=== PATIENT | male | born 1965 | race Caucasian/White ===

== ENCOUNTER → 2021-06-02 | Outpatient (CLI) | payer OTHER ==
--- NOTE | 2021-06-02 15:15 | DIREP ---
PROCEDURE:US DUPLEX EXTREM VEINS UNILATER/LIMITED-LT COMPARISON:None. INDICATIONS:R22.42 SWELLING LUMP LEFT LOWER LIMB, SWELLING SINCE MARCH 2021 TECHNIQUE:The left lower extremity was evaluated utilizing mak scale images with segmental compression, color Doppler, and spectral Doppler with respiratory variation and augmentation. FINDINGS: Common femoral vein:Patent Profunda femoris vein: Patent Superficial femoral vein:Patent Popliteal vein:Patent Posterior tibial vein:Patent Peroneal vein: Patent Greater saphenous vein:Patent Waveforms: Within normal limits. CONCLUSION:No evidence of deep venous thrombosis of the left lower extremity. Dictated by: NETTIEA Physician on 06/02/2021 at 03:04 PM ac
== END | disposition home or self-care (01) ==
LOC: RAD 14:03
PROVIDERS: ATTEND Family Medicine
DX: R22.42 Localized swelling, mass and lump, left lower limb (principal)
CPT/HCPCS: 93971

== ENCOUNTER → 2021-07-02 | Outpatient (CLI) | payer OTHER ==
--- NOTE | 2021-07-02 18:55 | DIREP ---
PROCEDURE:US DUPLEX LOWER EXTREMITY ARTERY UNIL/LIMITED-LT COMPARISON:None. INDICATIONS:LLE PAIN, DM, LLE SX 04/03 TECHNIQUE:A comprehensive color duplex Doppler ultrasound examination of the left lower extremity was performed. Color image and bidirectional spectral Doppler wave form analysis, and peak systolic flow measurements of the common femoral, profunda femoral, superficial femoral, and popliteal arteries were performed. Ankle/brachial indices were measured at the distal posterior tibial artery and anterior tibial/dorsalis pedis. FINDINGS: LEFT LOWER EXTREMITY: PT ANDREA: 1.26. AT/DP ANDREA: 1.30. COMMON FEMORAL:162 cm/sTriphasic PROFUNDA FEMORIS:144 cm/sTriphasic SUPERFICIAL FEMORAL (prox):146 cm/sTriphasic SUPERFICIAL FEMORAL (mid):122 cm/sTriphasic SUPERFICIAL FEMORAL (dist):140 cm/sTriphasic POPLITEAL (prox):106 cm/sTriphasic POPLITEAL (dist):104 cm/sTriphasic POSTERIOR TIBIAL (prox):98 cm/sTriphasic POSTERIOR TIBIAL (mid):81 cm/sTriphasic POSTERIOR TIBIAL (dist):77 cm/sTriphasic PERONEAL (prox):66 cm/sTriphasic ANTERIOR TIBIAL (prox):122 cm/sTriphasic ANTERIOR TIBIAL (mid):74 cm/sTriphasic ANTERIOR TIBIAL (dist):80 cm/sTriphasic DORSALIS PEDIS:83 cm/sTriphasic RIGHT LOWER EXTREMITY: PT ANDREA: 1.31. AT/DP ANDREA: 1.35. CONCLUSION: No significant obstructive disease by ANDREA. No increased velocity or waveform change to suggest hemodynamically significant stenosis sonographically. ABIs greater than 1.4 indicate noncompressible vessels, likely to have significant peripheral vascular disease (PVD). ABIs of 0.91 to 1.3 indicate no significant obstructive disease. ABIs of 0.41 to 0.90 indicate grade I claudication. ABIs less than 0.4 indicate limb-threatening ischemia of grade I or grade II. % stenosisPSV (cm/s)Velocity ratio0-19<150<[id number]>75>300>4 Dictated by: Anyi Champagne MD on 07/02/2021 at 06:49 PM
== END | disposition home or self-care (01) ==
LOC: RAD 14:40
PROVIDERS: ATTEND Family Medicine
DX: R22.42 Localized swelling, mass and lump, left lower limb (principal)
CPT/HCPCS: 93922; 93926

== ENCOUNTER → 2021-08-02 | Outpatient (CLI) | payer OTHER ==
--- NOTE | 2021-08-02 09:49 | DIREP ---
PROCEDURE:CT LOWER EXTREMITY-LT W/O COMPARISON:None. INDICATIONS:M25.562 ACUTE PAIN OF LEFT KNEE TECHNIQUE:Axial sections through the left knee were performed with sagittal and coronal reconstructions from source images. No contrast was administered. 3D reconstructions were also performed. FINDINGS: BONES:Metallic plate and screw fixation of a comminuted intra-articular fracture involving the tibial plateau common metaphysis, in extension to the proximal shaft. Hardware is well seated and intact. No evidence of surrounding lucency to suggest loosening or infection. Fracture lines at the medial tibial plateau remain lucent and demonstrate adjacent sclerosis consistent with nonunion. In addition there is a generalized region of lucency at the medial aspect of the tibial metaphysis. There is proximally 5 mm of step-off at the medial tibial plateau with chondral separation measuring up to 9 mm. JOINTS:There is tricompartmental degenerative change of the knee including sclerosis, joint space narrowing, significant subchondral cystic degenerative change. SOFT TISSUES:Small suprapatellar joint effusion. There is fat stranding seen throughout the anterior compartment of the knee subcutaneous tissue. OTHER:Negative. CONCLUSION: Metallic plate and screw fixation of a comminuted fracture involving the tibial plateau, metaphysis, and proximal shaft, as detailed above. Hardware is well seated and intact. 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 There is significant disruption of the medial compartment articular surface. Subchondral cystic degenerative change is seen throughout the knee. Dictated by: Orne Arango MD on 08/02/2021 at 09:38 AM
== END | disposition home or self-care (01) ==
LOC: RAD 08:32
DX: S82.042K Displaced comminuted fracture of left patella, subsequent encounter for closed fracture with nonunion (principal); M17.12 Unilateral primary osteoarthritis, left knee; M25.862 Other specified joint disorders, left knee; X58.XXXD Exposure to other specified factors, subsequent encounter
CPT/HCPCS: 73700